=== PATIENT | male | born 1960 | race American Indian/Alaskan Native ===

== ENCOUNTER 2016-12-22 23:43 | Emergency (ER) | payer MEDICARE, MEDICAID ==
[~2016-12-22] VITALS: Ht 162.6 cm; Wt 74.3 kg
[2016-12-22 23:45] VITALS: BP 157/89
== END 2016-12-23 00:34 | disposition home or self-care (01) ==
LOC: EDSEX 23:43 → ED 12-23 00:18
DX: S00.532A Contusion of oral cavity, initial encounter (principal); E11.9 Type 2 diabetes mellitus without complications; I10 Essential (primary) hypertension; X58.XXXA Exposure to other specified factors, initial encounter; Y93.89 Activity, other specified; Y99.8 Other external cause status; Y92.89 Other specified places as the place of occurrence of the external cause
CPT/HCPCS: 99283

== ENCOUNTER 2017-03-30 15:40 | Emergency (ER) | payer MEDICARE, MEDICAID ==
[~2017-03-30] VITALS: Ht 162.6 cm; Wt 76.0 kg
[2017-03-30 16:20] VITALS: BP 137/81
[2017-03-30 17:23] LABS: HEMOGLOBIN 13.9 g/dL (13.7-18.0); WHITE BLOOD COUNT 5.1 x10^3/uL (3.4-10)
[2017-03-30 17:35] LABS: BLOOD UREA NITROGEN 21 mg/dL (7-18)
[2017-03-30 17:38] LABS: ASPARTATE AMINO TRANSFERASE 13 U/L (15-37)
== END 2017-03-30 18:09 | disposition home or self-care (01) ==
LOC: ED 18:03
DX: B02.9 Zoster without complications (principal); E11.9 Type 2 diabetes mellitus without complications; I10 Essential (primary) hypertension
CPT/HCPCS: 36415; 80053; 85025; 99284

== ENCOUNTER 2018-08-05 09:16 | Emergency (ER) | payer MEDICARE, MEDICAID ==
[~2018-08-05] VITALS: Ht 162.6 cm; Wt 77.6 kg
[2018-08-05 09:26] VITALS: BP 150/78
== END 2018-08-05 10:26 | disposition home or self-care (01) ==
LOC: ED 10:20
DX: M70.22 Olecranon bursitis, left elbow (principal); I10 Essential (primary) hypertension; E11.9 Type 2 diabetes mellitus without complications
CPT/HCPCS: 99282